=== PATIENT | male | born 1990 | race Caucasian/White ===

== ENCOUNTER 2017-01-26 11:28 | Day surgery (SDC) | payer MEDICAID ==
[2017-01-20 12:34] VITALS: BMI 23.6
[2017-01-26] MEDS ORDERED: Bupivacaine HCl 0.25% PF (10 ml) Inj ONE ×2 (13:53)
[2017-01-26] MEDS ORDERED: Lactated Ringer's 1,000 ML IV ONE ×3 (13:54→15:30)
[2017-01-26] MEDS: ceFAZolin IV 1 gm in Dextrose 1 GM/50 ML BAG IVPB ONE ×2 (13:55→14:25)
[2017-01-26] MEDS ORDERED: Propofol 10 mg/ml Inj (20 ML) ONE (14:21)
[2017-01-26] MEDS ORDERED: Midazolam 2 MG/2 ML VIAL ONE (14:21)
[2017-01-26] MEDS ORDERED: Lidocaine 2% Inj (20ml) ONE (14:33)
[2017-01-26] MEDS ORDERED: Rocuronium 10 mg/ml (5 ml) ONE (14:41)
[2017-01-26] MEDS ORDERED: HYDROmorphone 0.5 mg/0.5 ml ISec IVP PRN (15:15)
[2017-01-26] MEDS ORDERED: Oxycodone/Acetaminophen 5/325 mg Tab PO PRN (15:24)
[2017-01-26 16:46] VITALS: BP 110/70; PULSE 68; RESP 18; TEMP 98; O2SAT 100
--- NOTE | 2017-01-26 22:17 | OP ---
PROCEDURE DATE: 01/26/2017 PREOPERATIVE DIAGNOSIS: Right subungual neck mass. POSTOPERATIVE DIAGNOSIS: Right subungual neck mass. PROCEDURE PERFORMED: Wide and deep excision of right subungual neck mass (4 cm) with repair of neck blood vessel and adjacent tissue transfer closure. SURGEON: Armaan Griffin MD. ANESTHESIA: General. BLOOD LOSS: 30 mL. POSTOPERATIVE CONDITION: Stable. INDICATIONS FOR SURGERY: A 26-year-old male with a right neck mass, now will undergo a wide and deep excision. DESCRIPTION OF PROCEDURE: The patient was taken to the operating room, general anesthesia administered. The right neck was prepped and draped. An elliptical incision was made surrounding the mass near the angle of the mandible and after dividing the platysma, the mass was in view. It was taken out with a rim of good tissue and bleeding was controlled using the Bovie. A branch of the facial artery was repaired with Prolene. The wound was irrigated with saline and widely undermined with counter incisions were made and the adjacent tissue transfer closure was performed of 30 cm2 using multiple layers of subcuticular Monocryl and glue. The patient tolerated the procedure well. Returned to recovery room in stable condition. Armaan Griffin MD
== END 2017-01-26 16:51 | disposition home or self-care (01) ==
LOC: C.SDS 11:28
PROVIDERS: ATTEND Surgery
DX: D36.7 Benign neoplasm of other specified sites (principal)
CPT/HCPCS: 13132; 21552; 88307; 88342; J0690; J1100; J1170; J2250; J2405; J2704; J3010; J7120